=== PATIENT | male | born 2000 | race Caucasian/White ===

== ENCOUNTER 2024-02-16 10:01 | Day surgery (SDC) | payer OTHER ==
[~2024-02-16] VITALS: Ht 175.3 cm; Wt 88.9 kg
[~2024-02-16 10:01] MED LIST: ADDE30CA3 PO
[2024-02-16] MEDS: EPINEPHrine INJ 1 MG/ML 1ML AMP PN ONE (11:20)
[2024-02-16] MEDS: LIDOCAINE 1% SDV 5ML VIAL PN ONE (11:20)
[2024-02-16] MEDS: dexAMETHasone 10MG/1ML VIAL PRES.FREE PN ONE (11:20)
[2024-02-16] MEDS: ROPIvacaine 0.5% 30ML VIAL PN ONE (11:20)
[2024-02-16] MEDS: fentaNYL 100 MCG/2 ML INJECTION IV PRN (11:50)
[2024-02-16] MEDS: MIDAZOLAM INJ 2MG/2ML VIAL IV PRN (11:50)
[2024-02-16] MEDS: ceFAZolin SOD 2 GM in IV 1 EA IV ONE (12:35)
[2024-02-16] MEDS ORDERED: MIDAZOLAM INJ 2MG/2ML VIAL As Ordered ONE (12:37)
[2024-02-16] MEDS ORDERED: fentaNYL 100 MCG/2 ML INJECTION As Ordered ONE (12:38)
[2024-02-16] MEDS: TRANEXAMIC ACID 100 MG/ML 10ML VIAL IV ONE (13:00)
[2024-02-16] MEDS: TRANEXAMIC ACID 100 MG/ML 10ML VIAL As Ordered ONE (13:00)
[2024-02-16] MEDS ORDERED: ROCURONIUM BROMIDE 50MG/5ML VIAL As Ordered ONE (13:25)
[2024-02-16] MEDS ORDERED: ONDANSETRON 4MG 2ML VIAL As Ordered ONE (13:25)
[2024-02-16] MEDS ORDERED: LIDOCAINE 2% 100MG/5ML SDV (FOR ANES.) As Ordered ONE (13:25)
[2024-02-16] MEDS ORDERED: propofoL 200 MG/20 ML VIAL As Ordered ONE (13:25)
[2024-02-16] MEDS ORDERED: ACETAMINOPHEN 1000MG/100ML IV BAG As Ordered ONE (13:25)
[2024-02-16] MEDS ORDERED: SUGAMMADEX SODIUM 500 MG/5 ML VIAL (BRIDION) As Ordered ONE (14:57)
[2024-02-16] MEDS ORDERED: KETOROLAC 60MG 2ML VIAL As Ordered ONE (15:02)
[2024-02-16] MEDS: VANCOMYCIN 1000MG/20ML VIAL As Ordered ONE (15:18)
[2024-02-16] MEDS: LIDOCAINE W/EPINEPHRINE 1% 20ML VIAL As Ordered ONE (15:18)
[2024-02-16] MEDS ORDERED: fentaNYL 100 MCG/2 ML INJECTION IV PRN (15:55)
[2024-02-16] MEDS: oxyCODONE 5MG TAB PO PRN (16:41)
[2024-02-16] MEDS: ONDANSETRON 4MG 2ML VIAL IV PRN (16:41)
[2024-02-16 17:40] VITALS: BP 135/70; TEMP 97.5; O2SAT 99
== END 2024-02-16 17:46 | disposition home or self-care (01) ==
LOC: M SDC 10:01
PROVIDERS: ATTEND Orthopaedic Surgery
DX: S29.011A Strain of muscle and tendon of front wall of thorax, initial encounter (principal); X50.0XXA Overexertion from strenuous movement or load, initial encounter; Y93.89 Activity, other specified; Y92.9 Unspecified place or not applicable; Z79.82 Long term (current) use of aspirin; Z87.891 Personal history of nicotine dependence; Z79.899 Other long term (current) drug therapy
CPT/HCPCS: 24341; C1713; J0131; J0690; J1100; J1885; J2250; J2405; J3010; J3370